=== PATIENT | male | born 1960 | race Caucasian/White ===

== ENCOUNTER 2020-05-12 09:44 | Emergency (ER) | payer BC ==
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
[2020-05-12] MEDS ORDERED: ceFAZolin 1 GM Vial IVPUSH ONE (10:23)
== END 2020-05-12 11:11 ==
LOC: CC.ED 09:44
DX: S68.627A Partial traumatic transphalangeal amputation of left little finger, initial encounter (principal); W22.8XXA Striking against or struck by other objects, initial encounter
CPT/HCPCS: 73130-LT; 96374; 99284-25; J0690